=== PATIENT | female | born 1935 | race Caucasian/White ===

== ENCOUNTER → 2016-12-01 | Outpatient (CLI) | payer BC, OTHER ==
[~2016-12-01] MED LIST: ASPEC325 PO; CHOLTAB3 PO; CLB200 PO; CYAN100T PO; ENAL10TA88 PO; HYDR-5688 PO; MULT-506 PO; NCYSR50 PO; OXYB5TAB PO; SIMV-150 PO; SYN75 PO; TRAM-10 PO; VERA240C2 PO
[2016-12-01 18:18] LABS: BLOOD UREA NITROGEN 15 mg/dl (7-18); BUN/CREATININE RATIO 29.7 (10-20); CALCIUM 9.2 mg/dl (8.5-10.1); CARBON DIOXIDE 28 mmol/L (21-32); CHLORIDE 106 mmol/L (98-107); CREATININE 0.52 mg/dl (0.60-1.20); GLUCOSE 93 mg/dl (70-99); POTASSIUM 4.1 mmol/L (3.5-5.1); SODIUM 140 mmol/L (136-145)
[2016-12-01 18:29] LABS: CHOLESTEROL 193 mg/dl (0-200); CHOLESTEROL/HDL RATIO 1.9; HDL CHOLESTEROL 102 mg/dl; LDL CHOLESTEROL CALCULATED 74 mg/dl; THYROID STIMULATING HORMONE 0.766 uIu/ml (0.300-4.500); TRIGLYCERIDES 86 mg/dl (0-150); VERY LOW DENSITY LIPOPROT CALC 17 mg/dl
[2016-12-02 06:24] LABS: ESTIMATED AVERAGE GLUCOSE 120 mg/dl; HA1C FLAG Normal (Normal)
== END | disposition home or self-care (01) ==
LOC: C.LABPBG 12:25
PROVIDERS: ATTEND Family Medicine
DX: I10 Essential (primary) hypertension (principal); E03.9 Hypothyroidism, unspecified; R73.9 Hyperglycemia, unspecified

== ENCOUNTER → 2017-03-23 | Outpatient (CLI) | payer OTHER ==
[2017-03-23 17:38] LABS: BASO % 0.6 %; BASO ABS # 0.04 K/uL (0-0.2); COMPLETE YES; EOS % 4.9 %; HEMATOCRIT 40.8 % (37-47); IG% 0.2 %; LYMPH % 23.8 %; MEAN CELL VOLUME 87.7 fL (80-100); MEAN CORPUSCULAR HEMOGLOBIN 26.9 pg (25-34); MEAN CORPUSCULAR HGB CONC 30.6 g/dl (32-36); MEAN PLATELET VOLUME 11.4 fL (7.4-10.4); MONO % 12.7 %; NEUT % 57.8 %; PLATELET COUNT 260 K/uL (130-400); RED BLOOD COUNT 4.65 M/uL (4.2-5.4); WHITE BLOOD COUNT 6.29 K/uL (4.8-10.8)
[2017-03-23 17:40] LABS: ALT/SGPT 23 U/L (12-78); BLOOD UREA NITROGEN 15 mg/dl (7-18); BUN/CREATININE RATIO 27.8 (10-20); CARBON DIOXIDE 29 mmol/L (21-32); CHLORIDE 105 mmol/L (98-107); CREATININE 0.55 mg/dl (0.60-1.20); GLUCOSE 94 mg/dl (70-99); POTASSIUM 4.2 mmol/L (3.5-5.1); SODIUM 139 mmol/L (136-145)
[2017-03-23 17:52] LABS: ALB/GLOB RATIO 0.9 (0.9-2); ALKALINE PHOSPHATASE 73 U/L (45-117); AST/SGOT 19 U/L (15-37); THYROID STIMULATING HORMONE 0.855 uIu/ml (0.300-4.500)
== END | disposition home or self-care (01) ==
LOC: C.LABPBG 11:20
PROVIDERS: ATTEND Family Medicine
DX: R42 Dizziness and giddiness (principal)

== ENCOUNTER → 2017-11-24 | Outpatient (CLI) | payer OTHER ==
[2017-11-25 07:12] LABS: HEMOGLOBIN A1C 5.6 % (4.5-5.6)
== END | disposition home or self-care (01) ==
LOC: C.LABPBG 09:55
PROVIDERS: ATTEND Family Medicine
DX: I10 Essential (primary) hypertension (principal); E03.9 Hypothyroidism, unspecified; R73.9 Hyperglycemia, unspecified

== ENCOUNTER 2018-03-09 13:53 | Emergency (ER) | payer OTHER ==
[~2018-03-09] VITALS: Ht 144.8 cm; Wt 61.3 kg
[2018-03-09 13:55] VITALS: TEMP 36.6; Ht 144.8 cm; Wt 61.3 kg
[2018-03-09] MEDS ORDERED: DIPHTHERIA/TETANUS/PERTUSSIS 0.5 ML SYR/VIAL IM. ONE (14:30)
[2018-03-09] MEDS ORDERED: GATI1SOL2 OP (14:35)
[2018-03-09] MEDS ORDERED: BRIM0.2S18 OP (14:35)
[2018-03-09] MEDS ORDERED: PRED1SUS3 OP (14:35)
[2018-03-09] MEDS ORDERED: PRLSR20 PO (14:35)
[2018-03-09] MEDS ORDERED: CHOL100010 PO (14:35)
[2018-03-09] MEDS ORDERED: LEVO75TA5 PO (14:35)
[2018-03-09] MEDS ORDERED: OXYB10TA13 PO (14:35)
[2018-03-09] MEDS ORDERED: DICY20TA10 PO (14:35)
[2018-03-09] MEDS ORDERED: KETO0.5S22 OP (14:35)
[2018-03-09] MEDS ORDERED: NAPR1TAB48 PO (14:35)
[2018-03-09] MEDS ORDERED: COEN75CA PO (14:35)
[2018-03-09] MEDS ORDERED: ASCO500T3 PO (14:35)
--- NOTE | 2018-03-09 14:35 | EMERGENCY ROOM VISIT NOTE ---
History Report prepared by Kimo: Ryan Rebolledo Under the Supervision of: Dr. Michelle Cage D.O. First contact with patient: 14:09 Chief Complaint: FALL Stated Complaint: FALL, POST CATARACT SURGERY History of Present Illness The patient is a 82 year old female who presents to the Emergency Room with complaints of a constant forehead laceration due to a recent fall. Patient states she was trying to sit down on the toilet when she fell forward and hit her head on the floor. She states she did not lose consciousness from the fall. She adds she could not get up following the incident. Patient states she had cataract surgery today prior to the fall. Patient denies elbow pain, knee pain, shoulder pain, tingling, nausea, SOB, chest pain, chipped teeth, nosebleed, or weakness. Past surgical history includes a knee replacement. Patient denies any problems with the cataract surgery. Patient denies taking any blood thinners. Patient uses a walking cane. Patient is present with her daughter. Daughter states the patient needs a tetanus shot. Pt states she hasn't eaten at all today but did take her morning medications. After my initial evaluation, office where she had the surgery called to tell us the patient did get versed for her procedure. Source of History: patient Onset: Recent Position: head (Forehead) Quality: other (Laceration) Timing: constant Modifying Factors (Relieving): other (None) Associated Symptoms: No LOC, No chest pain, No SOB, No nausea, No weakness Note: Negative elbow pain, knee pain, shoulder pain, tingling, nausea, chipped teeth, or nosebleed. Review of Systems See HPI for pertinent positives & negatives. A total of 10 systems reviewed and were otherwise negative. Past Medical & Surgical Surgical Problems: (1) History of knee replacement Family History Omitted secondary to age. Social History Smoking Status: Never Smoker Current/Historical Medications Scheduled Ascorbic Acid (Vitamin C), 500 MG PO DAILY Brimonidine Tartrate (Brimonidine Tartrate), 1 DROP OP BID Cholecalciferol (Vitamin D), 1,000 UNITS PO DAILY Coenzyme Q10 (Ubidecarenone) (Co Q-10), 1 CAP PO DAILY Enalapril (Vasotec), 10 MG PO DAILY Gatifloxacin (Ophth) (Gatifloxacin), 1 DROP OP Q2H Ketorolac Tromethamine (Ophth) (Ketorolac Tromethamine), 1 DROPS OP Q8 Levothyroxine Sodium (Levothyroxine Sodium), 75 MCG PO DAILY Multivitamin (Multivitamin), 1 TAB PO DAILY Naproxen (Naprosyn), 250 MG PO BID Omeprazole (Prilosec), 20 MG PO HS Oxybutynin Chloride Er (Ditropan Xl), 10 MG PO DAILY Prednisolone Acetate (Ophth) (Pred Forte 1% Oph), 1 DROPS OP Q2H Simvastatin (Simvastatin), 10 MG PO HS Verapamil Hcl (Verapamil Hcl Er), 240 MG PO DAILY Scheduled PRN Dicyclomine Hcl (Dicyclomine Hcl), 20 MG PO QID PRN for ABDOMINAL CRAMPS Tramadol (Ultram), 50 MG PO BID PRN for Pain Allergies Coded Allergies: Penicillins (Verified Allergy, Unknown, RASH AND HIVES, 02/13/14) Physical Exam Vital Signs Date Time Temp Pulse Resp B/P (MAP) Pulse Ox O2 Delivery O2 Flow Rate FiO2 03/09/18 17:32 65 20 187/73 96 Room Air 03/09/18 16:42 200/72 03/09/18 13:55 36.6 61 18 171/69 95 Room Air Physical Exam GENERAL: Awake, alert, well appearing, no acute distress HEAD: Right periorbital ecchymosis and edema otherwise normocephalic, atraumatic. No kingston sign. FACE: No bony tenderness. No midface instability. No evidence of dental or oropharyngeal trauma. LEFT EYE: Dressing and patch over from the surgery. RIGHT EYE: EOMI. No subconjunctival hemorrhage. No hyphema. Normal vision subjectively. EARS: External ears normal. Right TM normal. Left TM normal. NOSE: Atraumatic OROPHARYNX: Lips, tongue, and mucosa unremarkable. No erythema or exudate. NECK: Supple. No nuchal rigidity. FROM. No tracheal deviation or JVD. No posterior midline tenderness. No step offs noted. RESPIRATORY: CTA bilaterally CARDIAC: Regular rate, normal rhythm. ABDOMEN: Inspection reveals no abnormalities. Soft, non distended. No tenderness to palpation. No hernias. BACK: No midline step offs or tenderness to palpation. Unremarkable. PELVIS: Stable to rock. SKIN: Normal. LYMPH: No adenopathy. MUSCULOSKELETAL: Well healed vertical midline incision consistent with prior knee replacement otherwise upper and lower extremities are atraumatic. No bony tenderness, full range of motion, and normal pulses. NEURO: GCS 15. Normal sensorium. No sensory or motor deficits noted. Medical Decision & Procedures ER Provider Diagnostic Interpretation: Radiology results have been interpreted by the radiologist and reviewed by me. CERVICAL SPINE W/O CT DOSE: 885.12 mGy.cm CLINICAL HISTORY: 82 years-old Female with trauma. Acute posttraumatic neck pain COMPARISON: CT head and maxillofacial same day TECHNIQUE: Multiple axial CT images of the cervical spine were obtained without contrast. A dose lowering technique was utilized adhering to the principles of ALARA. FINDINGS: 3 mm anterolisthesis C5 on C6 and 2 mm anterolisthesis T2 on T3, likely on a degenerative basis. No acute cervical spine fracture or subluxation is identified. Severe intervertebral disc space narrowing at C5-C6 and C6-C7 with multilevel advanced facet arthropathy. Bony fusion of the right facets at C3-C4. Bony erosive changes are seen involving the right facet joints at C5-C6. Posterior elements appear intact. Evaluation of the central canal and neuroforamina is better assessed by MRI. Convex left curvature of the cervical spine. Partial bony fusion of the C3-C4 vertebral bodies along the right posterior margin. Mastoid air cells and middle ear cavities are clear. No prevertebral soft tissue swelling. Calcification of the carotid bulbs. 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 Mosaic attenuation of the left lung apex suggests air trapping. IMPRESSION: No acute cervical spine fracture or subluxation. The above report was generated using voice recognition software. It may contain grammatical, syntax or spelling errors. Electronically signed by: Mauri Camacho M.D. 03/09/2018 3:05 PM CHEST ONE VIEW PORTABLE HISTORY: 82 years-old Female trauma acute chest trauma status post fall COMPARISON: Chest radiograph 02/13/2014 TECHNIQUE: Portable AP view of the chest FINDINGS: Cardiac silhouette is mildly enlarged. Calcification of the aorta. Lungs are mildly hyperinflated without pneumothorax, pleural effusion or overt pulmonary edema. The patient is slightly rotated to the left. Subsegmental left basilar opacities suggest atelectasis or scarring. Healed remote appearing fracture of the posterior left seventh rib. Mild sigmoidal scoliosis of the thoracolumbar spine. Degenerative changes of the shoulders and spine. IMPRESSION: No acute process. The above report was generated using voice recognition software. It may contain grammatical, syntax or spelling errors. Electronically signed by: Mauri Camacho M.D. 03/09/2018 3:[address] SCAN OF THE BRAIN WITHOUT IV CONTRAST CLINICAL HISTORY: Trauma. Fall. COMPARISON STUDY: No priors. TECHNIQUE: Unenhanced axial CT scan of the brain is performed from the vertex to the skull base. A dose lowering technique was utilized adhering to the principles of ALARA. FINDINGS: Brain parenchyma: There are age-related involutional changes noting moderate to advanced confluent subcortical and periventricular microangiopathic change. A chronic lacunar infarct is noted in the left basal ganglion. There is no hemorrhage, mass effect, or evidence of acute territorial ischemia by CT criteria. Mayberry-white matter is preserved. No extra-axial fluid collection is seen. Ventricles, sulci, cisterns: Prominent secondary to involutional change. Intracranial vasculature: There is atherosclerotic calcification of the cavernous carotid and vertebral arteries. Calvarium: The skeletal structures are osteopenic. There is no depressed calvarial fracture. Small osteomas arise from the frontal calvarium. Soft tissues: There is a right frontal scalp hematoma. Sinuses and mastoids: The visualized paranasal sinuses are clear. The mastoid air cells are well pneumatized. Orbits: The bony orbits are grossly intact. There are bilateral ocular lens implants. IMPRESSION: 1. Senescent changes as above with no hemorrhage, mass effect, or evidence of acute territorial ischemia by CT criteria. 2. Right frontal scalp hematoma. No depressed calvarial fracture is seen. Electronically signed by: Fantasma Tatum M.D. 03/09/2018 3:05 PM [facility] CLINICAL HISTORY: 82 years-old Female presenting with trauma. Acute facial trauma COMPARISON STUDY: CT head and cervical spine of same day TECHNIQUE: High-resolution CT scan of the facial bones is performed. Images are reviewed in the axial, sagittal, and coronal planes. IV contrast was not administered for this examination. A dose lowering technique was utilized adhering to the principles of ALARA. FINDINGS: Mild right forehead and right periorbital soft tissue swelling with 3.8 x 0.7 cm forehead soft tissue hematoma. Orbits are symmetric. Thinning of the optic lenses. Atrophy with chronic microvascular ischemic changes. Remote appearing lacunar infarction or prominent perivascular space about the left lentiform nucleus. Cerebral vascular calcifications are noted. No skull fracture. Mastoid air cells and middle ear cavities are clear. Mild mucoperiosteal thickening of the ethmoid air cells and right maxillary sinus. Pterygoid plates, maxillary waters, zygomatic arches, and orbital waters appear intact. Nasal bones, and able septum and vomer also appear intact. Degenerative changes of the temporal mandibular joints. The mandible appears intact. Multilevel advanced degenerative changes of the cervical spine. Mild rightward bowing and spurring of the nasal septum. Lydia leon appears normal. IMPRESSION: Mild right forehead and right periorbital soft tissue swelling with forehead soft tissue hematoma. No acute facial bone fracture identified. The above report was generated using voice recognition software. It may contain grammatical, syntax or spelling errors. Electronically signed by: Mauri Camacho M.D. 03/09/2018 3:10 PM Medications Administered Medications (Trade) Dose Ordered Sig/[place] Route Start Time Stop Time Status Last Admin Dose Admin Diphtheria/ Pertussis/Tetanus Vacc (Adacel Inj) 0.5 ml ONCE ONCE IM. 03/09/18 14:30 03/09/18 14:32 DC 03/09/18 15:28 0.5 ML Lidocaine/ Epinephrine (Buffered Xylocaine/ Epinephrine 1% Inj) 20 ml STK-MED ONCE .ROUTE 03/09/18 15:59 03/09/18 16:00 DC 03/09/18 15:59 20 ML Amlodipine Besylate (Norvasc Tab) 5 mg NOW ONCE PO 03/09/18 17:00 03/09/18 17:01 DC 03/09/18 16:57 5 MG Procedure Location: Right superior forehead Total length: 1.5cm Complexity: Simpe Verbal consent was obtained after the risks and benefits were explained, including but not limited to bleeding, scarring, infection, pain, and bone/joint /nerve damage. At this time, the risks of the procedure are less than the risks of NOT performing the procedure. A time out was taken and the correct patient and site identified. The skin was prepped with betadine. The target area was anesthetized with 2 ml of 1% lidocaine with epinephrine. Copious irrigation was performed using sterile saline. The skin was re-prepped with betadine and a sterile field set. The wound was explored for foreign bodies and none found. Examination revealed no injury to deep structures such as tendons, bone, or significant blood vessels. Debridement was not performed. The wound edges were approximated using 6, 2-0 simple interrupted nylon sutures. Hemostasis and excellent approximation was achieved. Antibacterial ointment and a sterile dressing applied. Detailed wound care instructions and signs and symptoms of infection reviewed with the her. No complications and the patient tolerated the procedure well. ED Course 1422: The patient was evaluated in room A3. A complete history and physical exam was performed. 1430: Adacel Inj 0.5ml IM 1559: Lidocaine/Epinephrine 20ml .ROUTE 1632: Upon reevaluation, the patient is feeling better. I discussed the findings and the treatment plan with the patient. She verbalizes agreement and understanding. She was discharged home. Medical Decision Differential diagnosis: Etiologies such as fracture, dislocation, intra-abdominal, pneumothorax, intrathoracic , intracranial, neurologic, as well as other traumatic pathologies were entertained. Pt here well appearing despite trauma. Tetatus shot updated and laceration repaired. Imaging reassuring. Pt has been off antiplatelet therapy in preparation for her surgery. Discussed f/u for a recheck of her condition and suture removal. Pt ambulatory here with a steady gait. Htn noted, but improved with meds and pt anxious to leave which I feel contributed to her hypertension. Pt and daughter anxious to be discharged, verbalized understanding of all results and instructions, aware of symptoms to watch/ return for and were agreeable with plan. Medication Reconcilliation Current Medication List: was personally reviewed by me Blood Pressure Screening Patient's blood pressure: Elevated blood pressure Blood pressure disposition: Elevated BP felt to be situational Impression Primary Impression: CHI (closed head injury) Additional Impressions: Facial laceration Facial contusion Fall Scribe Attestation The scribe's documentation has been prepared under my direction and personally reviewed by me in its entirety. I confirm that the note above accurately reflects all work, treatment, procedures, and medical decision making performed by me. Departure Information Dispostion Home / Self-Care Referrals Candi Dalton MD (PCP) Forms HOME CARE DOCUMENTATION FORM, IMPORTANT VISIT INFORMATION Patient Instructions [facility] Additional Instructions Please follow-up with your family doctor to recheck the laceration on the face and assure that you are feeling better. The stitches will need to be removed in 5-7 days. You may wash your face and shower, do not scrub over the area or use an abrasive soap or cleanser. Please eat and drink normally, continue routine medications, and continue any postop instructions were given by her eye doctor regarding the surgery today. If you have any worsening headaches, dizziness, nausea/vomiting, vision changes, redness or drainage around the laceration on your forehead, develop worsening weakness, numbness or tingling, difficulty walking, you have any other new concerns, please return the emergency room. Please make a note in your records that your tetanus shot was updated today. Problem Qualifiers Primary Impression: CHI (closed head injury) Encounter type: initial encounter Qualified Codes: S09.90XA - Unspecified injury of head, initial encounter Additional Impressions: Facial laceration Encounter type: initial encounter Qualified Codes: S01.81XA - Laceration without foreign body of other part of head, initial encounter Facial contusion Encounter type: initial encounter Qualified Codes: S00.83XA - Contusion of other part of head, initial encounter Fall Encounter type: initial encounter Qualified Codes: W19.XXXA - Unspecified fall, initial encounter
--- NOTE | 2018-03-09 15:06 | DIAGNOSTIC IMAGING REPORT ---
CERVICAL SPINE W/O CT DOSE: 885.12 mGy.cm CLINICAL HISTORY: 82 years-old Female with trauma. Acute posttraumatic neck pain COMPARISON: CT head and maxillofacial same day TECHNIQUE: Multiple axial CT images of the cervical spine were obtained without contrast. A dose lowering technique was utilized adhering to the principles of ALARA. FINDINGS: 3 mm anterolisthesis C5 on C6 and 2 mm anterolisthesis T2 on T3, likely on a degenerative basis. No acute cervical spine fracture or subluxation is identified. Severe intervertebral disc space narrowing at C5-C6 and C6-C7 with multilevel advanced facet arthropathy. Bony fusion of the right facets at C3-C4. Bony erosive changes are seen involving the right facet joints at C5-C6. Posterior elements appear intact. Evaluation of the central canal and neuroforamina is better assessed by MRI. Convex left curvature of the cervical spine. Partial bony fusion of the C3-C4 vertebral bodies along the right posterior margin. Mastoid air cells and middle ear cavities are clear. No prevertebral soft tissue swelling. Calcification of the carotid bulbs. 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 Mosaic attenuation of the left lung apex suggests air trapping. IMPRESSION: No acute cervical spine fracture or subluxation. The above report was generated using voice recognition software. It may contain grammatical, syntax or spelling errors. Electronically signed by: Mauri Camacho M.D. 03/09/2018 3:05 PM Dictated Date/Time: 03/09/2018 2:58 PM
--- NOTE | 2018-03-09 15:06 | DIAGNOSTIC IMAGING REPORT ---
CT SCAN OF THE BRAIN WITHOUT IV CONTRAST CLINICAL HISTORY: Trauma. Fall. COMPARISON STUDY: No priors. TECHNIQUE: Unenhanced axial CT scan of the brain is performed from the vertex to the skull base. A dose lowering technique was utilized adhering to the principles of ALARA. FINDINGS: Brain parenchyma: There are age-related involutional changes noting moderate to advanced confluent subcortical and periventricular microangiopathic change. A chronic lacunar infarct is noted in the left basal ganglion. There is no hemorrhage, mass effect, or evidence of acute territorial ischemia by CT criteria. Mayberry-white matter is preserved. No extra-axial fluid collection is seen. Ventricles, sulci, cisterns: Prominent secondary to involutional change. Intracranial vasculature: There is atherosclerotic calcification of the cavernous carotid and vertebral arteries. Calvarium: The skeletal structures are osteopenic. There is no depressed calvarial fracture. Small osteomas arise from the frontal calvarium. Soft tissues: There is a right frontal scalp hematoma. Sinuses and mastoids: The visualized paranasal sinuses are clear. The mastoid air cells are well pneumatized. Orbits: The bony orbits are grossly intact. There are bilateral ocular lens implants. IMPRESSION: 1. Senescent changes as above with no hemorrhage, mass effect, or evidence of acute territorial ischemia by CT criteria. 2. Right frontal scalp hematoma. No depressed calvarial fracture is seen. Electronically signed by: Fantasma Tatum M.D. 03/09/2018 3:05 PM Dictated Date/Time: 03/09/2018 3:02 PM
--- NOTE | 2018-03-09 15:11 | DIAGNOSTIC IMAGING REPORT ---
FACIAL BONES-MXILLOF[facility] WITHOUT CLINICAL HISTORY: 82 years-old Female presenting with trauma. Acute facial trauma COMPARISON STUDY: CT head and cervical spine of same day TECHNIQUE: High-resolution CT scan of the facial bones is performed. Images are reviewed in the axial, sagittal, and coronal planes. IV contrast was not administered for this examination. A dose lowering technique was utilized adhering to the principles of ALARA. FINDINGS: Mild right forehead and right periorbital soft tissue swelling with 3.8 x 0.7 cm forehead soft tissue hematoma. Orbits are symmetric. Thinning of the optic lenses. Atrophy with chronic microvascular ischemic changes. Remote appearing lacunar infarction or prominent perivascular space about the left lentiform nucleus. Cerebral vascular calcifications are noted. No skull fracture. Mastoid air cells and middle ear cavities are clear. Mild mucoperiosteal thickening of the ethmoid air cells and right maxillary sinus. Pterygoid plates, maxillary waters, zygomatic arches, and orbital waters appear intact. Nasal bones, and able septum and vomer also appear intact. Degenerative changes of the temporal mandibular joints. The mandible appears intact. Multilevel advanced degenerative changes of the cervical spine. Mild rightward bowing and spurring of the nasal septum. Lydia leon appears normal. IMPRESSION: Mild right forehead and right periorbital soft tissue swelling with forehead soft tissue hematoma. No acute facial bone fracture identified. The above report was generated using voice recognition software. It may contain grammatical, syntax or spelling errors. Electronically signed by: Mauri Camacho M.D. 03/09/2018 3:10 PM Dictated Date/Time: 03/09/2018 3:05 PM
--- NOTE | 2018-03-09 15:17 | DIAGNOSTIC IMAGING REPORT ---
CHEST ONE VIEW PORTABLE HISTORY: 82 years-old Female trauma acute chest trauma status post fall COMPARISON: Chest radiograph 02/13/2014 TECHNIQUE: Portable AP view of the chest FINDINGS: Cardiac silhouette is mildly enlarged. Calcification of the aorta. Lungs are mildly hyperinflated without pneumothorax, pleural effusion or overt pulmonary edema. The patient is slightly rotated to the left. Subsegmental left basilar opacities suggest atelectasis or scarring. Healed remote appearing fracture of the posterior left seventh rib. Mild sigmoidal scoliosis of the thoracolumbar spine. Degenerative changes of the shoulders and spine. IMPRESSION: No acute process. The above report was generated using voice recognition software. It may contain grammatical, syntax or spelling errors. Electronically signed by: Mauri Camacho M.D. 03/09/2018 3:16 PM Dictated Date/Time: 03/09/2018 3:14 PM
[2018-03-09] MEDS ORDERED: LIDO/EPINEPHRINE/SOD BICARB 20 ML VIAL ONE (15:59)
[2018-03-09] MEDS ORDERED: AMLODIPINE BESYLATE 5 MG TAB PO ONE (17:00)
[2018-03-09 17:32] VITALS: BP 187/73; PULSE 65; O2SAT 96
== END 2018-03-09 17:37 | disposition home or self-care (01) ==
LOC: C.EDB 13:54 → C.EDA 17:37
DX: S01.81XA Laceration without foreign body of other part of head, initial encounter (principal); W01.198A Fall on same level from slipping, tripping and stumbling with subsequent striking against other object, initial encounter; Z23 Encounter for immunization; Z98.890 Other specified postprocedural states; Z79.899 Other long term (current) drug therapy; Z88.0 Allergy status to penicillin